=== PATIENT | female | born 1950 | race Asian ===

== ENCOUNTER 2021-01-10 14:48 | Emergency (ER) | payer MEDICARE ==
[~2021-01-10] VITALS: Ht 152.4 cm; Wt 50.5 kg
[2021-01-10 14:55] VITALS: BP 174/105
[2021-01-10] MEDS ORDERED: LIDOCAINE-MPF 1%, 5ML ONE ×2 (15:16→15:22)
[2021-01-10] MEDS ORDERED: LIDOCAINE-MPF 1%, 5ML INFIL ONE (15:30)
[2021-01-10] MEDS ORDERED: DIPH,PERTUSS(ACELL),TET VAC/PF 0.5 ML IM-VACC ONE ×2 (15:30→16:15)
[2021-01-10] MEDS ORDERED: NEOSPORIN OINT. PKT 1 PACKET ONE (15:58)
--- NOTE | 2021-01-10 16:23 | NUR ---
TASK RN: PT MEDICATED PER EMAR. DC INSTRUCTIONS DISCUSSED WITH PT. PT VERBALIZED UNDERSTANDING. NO FURTHER QUESTIONS OR CONCERNS EXPRESSED. ADDITIONAL SUPPLIES PROVIDED TO PT FOR WOUND CARE. PT GETTING SELF DRESSED. RN TO WALK PT OUT TO DC DESK WHEN READY.
== END 2021-01-10 16:46 | disposition home or self-care (01) ==
LOC: ED 16:43
DX: S61.214A Laceration without foreign body of right ring finger without damage to nail, initial encounter (principal); W01.0XXA Fall on same level from slipping, tripping and stumbling without subsequent striking against object, initial encounter; Y93.01 Activity, walking, marching and hiking; Y92.410 Unspecified street and highway as the place of occurrence of the external cause; Y99.8 Other external cause status
CPT/HCPCS: 12001; 90471; 90715

== ENCOUNTER 2021-01-20 14:07 | Emergency (ER) | payer MEDICARE ==
[~2021-01-20] VITALS: Ht 157.5 cm; Wt 49.7 kg
[2021-01-20 14:18] VITALS: BP 154/79
--- NOTE | 2021-01-20 14:45 | NUR ---
Patient/Caregiver given discharge instructions and they have confirmed that they understand the instructions. Patient ambulatory with steady gait.
== END 2021-01-20 15:21 | disposition home or self-care (01) ==
LOC: ED 14:30
DX: S61.214D Laceration without foreign body of right ring finger without damage to nail, subsequent encounter (principal); X58.XXXD Exposure to other specified factors, subsequent encounter
CPT/HCPCS: 99281